=== PATIENT | male | born 1950 | race Hispanic/Latino ===

== ENCOUNTER → 2021-10-12 | Outpatient (CLI) | payer MEDICARE ==
[~2021-10-12] MED LIST: ALBUMIN (HUMAN) 25% 200 ML IV SCH
[2021-10-12 09:10] LABS: BASOPHILS % (AUTO) 1.1 % (0.0-5.0); EOSINOPHILS % (AUTO) 5.1 % (0.0-8.0); MEAN CORPUSCULAR HGB CONC 33.1 g/dL (32.0-36.0); MEAN CORPUSCULAR VOLUME 93.9 fL (79-99); MONOCYTES % (AUTO) 19.4 % (3.0-13.0); PLATELET COUNT (AUTO) 132 K/uL (130-400); RED BLOOD CELL COUNT(AUTO) 2.77 MIL/uL (4.50-6.20); RED CELL DISTRIBUTION WIDTH 17.2 % (11.0-15.5); WHITE BLOOD COUNT (AUTO) 9.4 K/uL (4.8-10.8)
[2021-10-12 09:19] LABS: INR 1.32 (0.85-1.15)
[2021-10-12 09:27] LABS: ALBUMIN 2.8 g/dL (3.5-5.0); CREATININE 5.2 mg/dL (0.5-1.5); POTASSIUM 4.7 mmol/L (3.5-5.1); TOTAL PROTEIN, SERUM 7.2 g/dL (6.0-8.3)
[2021-10-12 12:34] LABS: ALBUMIN,BODY FLUID 0.2 g/dL
[2021-10-12 13:19] LABS: SPECIMENTYPE,BODY FLUID ASCITES
[2021-10-12 13:20] LABS: APPEARANCE BODY FLUID CLEAR (CLEAR); BODY FLUID RBC 100 /cu. mm.; BODY FLUID WBC 200 /cu. mm.; COLOR,BODY FLUID YELLOW (LT YELLOW); TOTAL VOLUME,BODY FLUID 3300 mL
[2021-10-12 13:37] LABS: BF LYMPHOCYTE 40 %; BF MESOTHELIAL 45 %
== END | disposition home or self-care (01) ==
LOC: RAH 08:20
PROVIDERS: ATTEND Internal Medicine
DX: R18.8 Other ascites (principal); Z79.01 Long term (current) use of anticoagulants
CPT/HCPCS: 36415; 49083; 80053; 82042; 84157; 85025; 85610; 87071; 87205; 88112; 88305; 88341; 88342; 89051; C1729; P9046